=== PATIENT | female | born 1940 | race Caucasian/White ===

== ENCOUNTER 2020-12-20 11:07 | Day surgery (SDC) | payer MEDICARE ==
[2020-12-20] MEDS ORDERED: Xylocaine 1% Vial 30 ML PF IJ ONE (11:08)
[2020-12-20] MEDS ORDERED: Depo-Medrol 40 MG/ML IM ONE (11:08)
[2020-12-20] MEDS ORDERED: Decadron 4 MG INJ IV ONE (11:08)
[2020-12-20] MEDS ORDERED: BUPIVACAINE 0.5% VIAL IJ ONE (11:08)
[2020-12-20] MEDS ORDERED: DIPRIVAN 200 MG/20 ML IV ONE (12:39)
--- NOTE | 2020-12-20 14:13 | XRAY ---
Indication: Left greater trochanter bursa and left piriformis injections. Intraoperative fluoroscopy provided for 22 seconds. 2 digital spot images obtained prone submitted for interpretation demonstrates needle tip lateral to left greater trochanter. Second needle tip projects over the expected left piriformis muscle. Small amount of contrast injected for both needle tip placement. Correlate with intraoperative findings/report.
--- NOTE | 2020-12-20 14:18 | XRAY ---
22 seconds of fluoroscopy was used in surgery for a left greater trochanteric bursa and piriformis injection.
[2020-12-20] MEDS ORDERED: Lactated Ringers 1,000 ML IV ONE (15:56)
== END 2020-12-20 13:05 | disposition home or self-care (01) ==
LOC: SDC-PAIN 11:07
PROVIDERS: ATTEND Psychiatry & Neurology Pain Medicine
DX: M16.12 Unilateral primary osteoarthritis, left hip (principal); M79.18 Myalgia, other site; I10 Essential (primary) hypertension; C64.9 Malignant neoplasm of unspecified kidney, except renal pelvis; Z79.899 Other long term (current) drug therapy
CPT/HCPCS: 20552; 20610; 73502; 77002; 99100; J1030; J1100; J2001; J2704; Q9966

== ENCOUNTER 2021-01-17 14:41 | Day surgery (SDC) | payer MEDICARE ==
[~2021-01-17 14:41] MED LIST: Lactated Ringers 1,000 ML IV ONE
[2021-01-17] MEDS ORDERED: Decadron 4 MG INJ IV ONE (14:42)
[2021-01-17] MEDS ORDERED: BUPIVACAINE 0.5% VIAL IJ ONE (14:42)
[2021-01-17] MEDS ORDERED: Depo-Medrol 40 MG/ML IM ONE (14:42)
--- NOTE | 2021-01-17 20:02 | XRAY ---
Indication: Left hip and left piriformis injections. Intraoperative fluoroscopy provided for 27 seconds. 2 digital spot image submitted for interpretation demonstrates needle tip projecting lateral to the left femur head. Second needle tip projects over the expected left piriformis muscle. Small amount of contrast injected for both needle tip placement. Correlate with intraoperative findings/report.
--- NOTE | 2021-01-17 20:02 | XRAY ---
Indication: Left SI joint injection. Intraoperative fluoroscopy provided for 23 seconds. Single lateral digital spot image submitted for interpretation demonstrates posterior needle tip projecting mid sacrum level. Correlate with intraoperative findings/report.
--- NOTE | 2021-01-18 08:38 | XRAY ---
23 seconds fluoroscopy time in surgery for injection of the left SI joint.
--- NOTE | 2021-01-18 08:48 | XRAY ---
27 seconds of fluoroscopy time in surgery for injections of the left greater trochanter and the left piriformis muscle.
== END 2021-01-17 16:40 | disposition home or self-care (01) ==
LOC: SDC-PAIN 14:41
PROVIDERS: ATTEND Psychiatry & Neurology Pain Medicine
DX: M46.1 Sacroiliitis, not elsewhere classified (principal); M16.12 Unilateral primary osteoarthritis, left hip; M79.18 Myalgia, other site; I10 Essential (primary) hypertension; C64.9 Malignant neoplasm of unspecified kidney, except renal pelvis; Z79.899 Other long term (current) drug therapy
CPT/HCPCS: 20552; 20610; 27096; 72020; 73502; 77002; G0260; 99100; J1030; J1100; Q9966